=== PATIENT | male | born 2000 | race Caucasian/White ===

== ENCOUNTER 2020-04-29 14:07 | Emergency (ER) | payer BC, OTHER ==
[2020-04-30 14:54] LABS: SARS-CoV-2 MS2 Positive; SARS-CoV-2 N Gene Negative; SARS-CoV-2 S Gene Negative; SARS-CoV-2 orf1ab Negative
== END 2020-04-29 14:51 | disposition home or self-care (01) ==
LOC: ERS 14:07
DX: Z20.828 Contact with and (suspected) exposure to other viral communicable diseases (principal); F17.210 Nicotine dependence, cigarettes, uncomplicated
CPT/HCPCS: 87635; 99283; U0003